=== PATIENT | male | born 1970 | race Caucasian/White ===

== ENCOUNTER 2023-10-27 10:03 | Inpatient (IN) ==
--- NOTE | 2023-10-27 11:08 | Emergency Department Note ---
Impression & Plan Calculus, ureteral, Hydroureteronephrosis ED Provider Note HISTORY OF PRESENT ILLNESS: Patient is a 53-year-old male presenting with lower abdominal pain and inability to urinate. Patient states that 2 days ago was the last time he was able to urinate completely normal. He states that yesterday he felt significant pressure in his suprapubic and lower abdominal region and was voiding "little bits at a time." He states that today he feels like he needs to urinate but when he tries to urinate he is only able to produce a few drops at a time. Denies any chest pain or shortness of breath. Reports nausea on the way here. He states significant pressure in his suprapubic region. ROS: as above PHYSICAL EXAM: Constitutional: Patient appears in no acute distress. HENT: Head: Normocephalic and atraumatic. Eyes: EOMI, PERRL Mouth/Throat: Mucous membranes moist. Neck: Trachea midline. Neck supple. Cardiovascular: RRR, No murmurs, rubs or gallops. Intact distal pulses. Pulmonary/Chest: No respiratory distress. Breath sounds clear and equal bilaterally. No wheezes or rales. Abdominal: Abdomen soft, no rebound or guarding. Patient has suprapubic tenderness to palpation. Dome of bladder is palpated at the umbilicus. Musculoskeletal: No edema, tenderness or deformity noted. Skin: Warm and dry. No rash, erythema, pallor or cyanosis Psychiatric: Appropriate mood and affect for situation. Neurological: Alert and keenly responsive. CN II-XII grossly intact, moving all extremities equally and fully. MDM: - Vitals signs showed hypertension. - History obtained via patient. Patient presents with lower abdominal bloating inability to urinate. Patient reports 2 days ago he was able to urinate completely normal. States that yesterday he had significant pressure in his suprapubic and lower abdominal region and was only voiding a little bit at a time. Reports today he feels like he needs to urinate but is only able to produce a few drops. Denies any chest pain or shortness of breath. Reports nausea. States pressure in his suprapubic region. - Chronic conditions affecting care: prostamegaly - Differential diagnoses include, but are not limited to: urinary retention; UTI; ureteral calculus; diverticulitis - Order placed for continuous cardiac monitoring. At this time, monitor showed rate of 61 bpm with normal sinus rhythm, per my interpretation. - External medical records reviewed. Neurology office visit note dated 05/03/2023 was reviewed. Patient follows in their clinic for concern for prostate cancer. However, he had biopsies performed which showed no cancer. He is actively being treated with Flomax and active surveillance for possible prostatectomy. - Patient was bladder scanned for only 50 cc urine. A wu was placed and about 150 cc of urine was produced. - Laboratory workup interpreted by myself showed leukocytosis (WBC 12.53) with left shift; stable electrolytes; normal creatinine (Cr 1.3); normal lactate - UA negative for infection - CT abdomen/pelvis wo contrast showed 5 mm obstructing stone in distal left ureter with mild left hydroureteronephrosis. - Patient initially given 1L NS, 4 mg IV zofran and 50 mcg IV fentanyl. Still complaining of significant pain on reassessment. Given an additional 50 mcg IV fentanyl. On reassessment, he is laying on the bed crying in pain. Given 0.5 mg IV Dilaudid. - Discussion was had with [facility] home[facility] about patient's case and need for admission - Hospitalist consulted for admission - [facility] ASSESSMENT AND PLAN: Diagnosis: ureteral stone; hydroureteronephrosis Plan: admit Past Med/Surg History Social History Smoking Status: Never smoker Preferred Language: Swedish Feels Safe at Home: Yes Allergies Allergies Allergy/AdvReac Type Severity Reaction Status Date / Time No Known Allergies Allergy Verified 10/27/23 15:19 Home Meds Home Medications Medication Instructions Recorded Confirmed inulin-sorbitol 2 gram chewable 2 tab PO DAILY 10/27/23 10/27/23 tablet krill 1,000 mg-omega-3 170 mg-dha 1 cap PO DAILY 10/27/23 10/27/23 50 mg-epa 80 [id number]-eyhew capsule (krill oil) Previous Rx's Medication Instructions Recorded tamsulosin 0.4 mg capsule 0.4 mg PO DAILY #90 caps 05/03/23 Results & Data (ED) Vital Signs Vital Signs - 24 hr 10/27/23 10:06 10/27/23 11:04 10/27/23 12:04 Temperature 36.5 C Temperature Source Temporal Artery Scan Pulse Rate 61 Pulse Rate [Finger] 69 Pulse Rhythm [Finger] Respiratory Rate 18 18 Respiratory Effort / Characteristics Non-Labored Spontaneous Respiratory Depth Normal Respiratory Pattern Blood Pressure [Left Arm] 164/80 H Blood Pressure Mean [Left Arm] 108 Blood Pressure Position Sitting Blood Pressure Position [Left Arm] Pulse Oximetry 96 97 96 Oxygen Delivery Method Room Air Room Air Room Air Oxygen Flow Rate Sepsis Recent Fever Within 48 Hours No Sepsis New/Unexplained Change in Mental Status No Sepsis Action Taken by Nursing No Action Required 10/27/23 14:00 10/27/23 15:32 10/27/23 16:49 Temperature Temperature Source Pulse Rate Pulse Rate [Finger] 68 61 Pulse Rhythm [Finger] Regular Respiratory Rate 19 22 Respiratory Effort / Characteristics Non-Labored Spontaneous Respiratory Depth Normal Normal Respiratory Pattern Regular Blood Pressure [Left Arm] 159/69 H 147/86 H Blood Pressure Mean [Left Arm] 99 106 Blood Pressure Position Blood Pressure Position [Left Arm] Sitting Pulse Oximetry 98 92 86 L Oxygen Delivery Method Room Air Room Air Room Air Oxygen Flow Rate Sepsis Recent Fever Within 48 Hours Sepsis New/Unexplained Change in Mental Status Sepsis Action Taken by Nursing 10/27/23 16:50 Temperature Temperature Source Pulse Rate Pulse Rate [Finger] Pulse Rhythm [Finger] Respiratory Rate Respiratory Effort / Characteristics Respiratory Depth Respiratory Pattern Blood Pressure [Left Arm] Blood Pressure Mean [Left Arm] Blood Pressure Position Blood Pressure Position [Left Arm] Pulse Oximetry 97 Oxygen Delivery Method Nasal Cannula Oxygen Flow Rate 2 Sepsis Recent Fever Within 48 Hours Sepsis New/Unexplained Change in Mental Status Sepsis Action Taken by Nursing Laboratory Data 10/27/23 11:05 10/27/23 11:05 Lab Results 10/27/23 10/27/23 10/27/23 Range/Units 11:05 11:16 11:29 WBC 12.53 H (4.8-10.8) K/ul RBC 5.11 (4.70-6.10) M/uL Hgb 14.2 (14.0-18.0) g/dl Hct 43.0 (42.0-52.0) % MCV 84.1 (80.0-100.0) fL MCH 27.8 (25.0-34.0) pg MCHC 33.0 (32.0-36.0) g/dL RDW Std Deviation 41.6 (36.4-46.3) fL RDW Coeff of [place] 13.4 (11.5-14.5) % Plt Count 282 (130-400) K/uL MPV 9.9 (9.4-12.4) fL Immature Gran % (Auto) 0.4 % Neut % (Auto) 77.0 % Lymph % (Auto) 14.0 % [place] % (Auto) 7.3 % Eos % (Auto) 0.7 % Baso % (Auto) 0.6 % Neut # (Auto) 9.66 H (1.40-6.50) K/uL Lymph # (Auto) 1.75 (1.20-3.40) K/uL [place] # (Auto) 0.91 H (0.11-0.59) K/uL Eos # (Auto) 0.09 (0.00-0.50) K/uL Baso # (Auto) 0.07 (0.00-0.20) K/uL Immature Gran # (Auto) 0.05 (0.01-0.20) K/uL Sodium 142 (136-145) mmol/L Potassium 4.4 (3.5-5.1) mmol/L Chloride 109 H (98-107) mmol/L Carbon Dioxide 27 (21-32) mmol/L Anion Gap 6 (3-11) BUN 16 (6-23) mg/dl Creatinine 1.30 (0.6-1.4) mg/dl Est Cr Clr Drug Dosing 77.6 ml/min Est GFR ( Amer) 71.7 ml/min Est GFR (Non-Af Amer) 61.9 ml/min BUN/Creatinine Ratio 12.3 (10-20) Glucose 120 H (70-99(Fasting)) mg/dl Lactate 1.0 (0.4-2.0) mmol/L Calcium 9.8 (8.6-10.3) mg/dl Total Bilirubin 0.5 (0.2-1.0) mg/dl AST 22 (13-39) U/L ALT 30 (7-52) U/L Alkaline Phosphatase 80 (34-104) U/L Total Protein 7.8 (6.0-8.3) gm/dl Albumin 4.8 (3.4-5.0) gm/dl Globulin 3.0 (2.5-4.0) gm/dl Albumin/Globulin Ratio 1.6 (0.9-2) Urine Color Yellow Urine Appearance Clear (Clear) Urine pH 6.0 (4.5-7.5) Ur Specific [place] 1.028 (1.000-1.030) Urine Protein Negative (Negative) Urine Glucose (UA) Negative (Negative) Urine Ketones Trace H (Negative) Urine Blood Negative (Negative) Urine Nitrite Negative (Negative) Urine Bilirubin Negative (Negative) Urine Urobilinogen Negative (Negative) Ur Leukocyte Esterase Negative (Negative) Administered Medications Discontinued Medications Fentanyl Citrate (Fentanyl Citrate Pf 100 Mcg/2 Ml Vial) 50 mcg IV NOW STA Stop: 10/27/23 12:43 Last Admin: 10/27/23 13:29 Dose: 50 mcg Documented By: HANS Fentanyl Citrate (Fentanyl Citrate Pf 100 Mcg/2 Ml Vial) 50 mcg IV NOW STA Stop: 10/27/23 15:15 Last Admin: 10/27/23 15:18 Dose: 50 mcg Documented By: ESTHELA Fentanyl Citrate (Fentanyl Citrate Pf 100 Mcg/2 Ml Vial) Confirm Administered Dose 100 mcg .ROUTE .STK-MED ONE Stop: 10/27/23 15:16 Last Admin: 10/27/23 15:18 Dose: Not Given Documented By: ESTHELA Hydromorphone HCl (Hydromorphone Inj 0.5 Mg/0.5 Ml Syr) 0.5 mg IV NOW STA Stop: 10/27/23 16:34 Last Admin: 10/27/23 16:36 Dose: 0.5 mg Documented By: HANS Sodium Chloride (Nss) 1,000 mls @ 999 mls/hr IV .Q1H1M ONE Stop: 10/27/23 13:42 Last Infusion: 10/27/23 15:07 Dose: Infused Documented By: Admin: 10/27/23 13:30 Dose: 999 mls/hr Documented By: HANS Ondansetron HCl (Ondansetron Inj 2 Mg/Ml 2 Ml Vial) 4 mg IV NOW STA Stop: 10/27/23 12:43 Last Admin: 10/27/23 13:30 Dose: 4 mg Documented By: HANS Ondansetron HCl (Ondansetron Inj 2 Mg/Ml 2 Ml Vial) 4 mg IV NOW STA Stop: 10/27/23 15:15 Last Admin: 10/27/23 15:18 Dose: 4 mg Documented By: ESTHELA Imaging Data Radiologist's Impression: Abdomen/Pelvis CT 01/10/24 11:05 CT SCAN OF THE ABDOMEN AND PELVIS WITHOUT IV CONTRAST CLINICAL HISTORY: Lower abdominal pain. Inability to void. COMPARISON STUDY: MRI of the prostate gland dated 02/22/2023. TECHNIQUE: CT scan of the abdomen and pelvis is performed from the lung bases to the proximal femora. Images are reviewed in the axial, sagittal, and coronal planes. IV contrast was not administered for this examination. A dose lowering technique was utilized adhering to the principles of ALARA. CT DOSE: 1448.11 mGy.cm FINDINGS: Lung bases: The heart is normal in size and without pericardial effusion. There is mild bibasilar atelectasis. The lung bases are otherwise clear. Liver: The unenhanced liver is normal in size, contour, and attenuation. There is no intrahepatic biliary ductal dilatation. Scattered subcentimeter hepatic hypodensities likely represent cysts but are too small for definitive characterization. Gallbladder: Unremarkable. Spleen: Normal in size and attenuation. Pancreas: Unremarkable. Adrenal glands: Unremarkable. Kidneys: The unenhanced kidneys are normal in size. There is a 5 mm obstructing calculus in the distal left ureter just above the vesicoureteral junction seen on image #323. This causes mild left hydroureteronephrosis. There is associated left-sided perinephric stranding and fluid. There is an additional punctate nonobstructing left renal calculus. No right renal calculi are identified and there is no right-sided hydronephrosis. There is no evidence of contour deforming renal mass lesion. Abdominal vasculature: The abdominal aorta is normal in course and caliber. Bowel: There is no bowel obstruction. The appendix is well-visualized and normal. Peritoneum: There is no intraperitoneal free air or abdominal ascites. There is a small fat-containing umbilical hernia. Lymphadenopathy: None. Pelvic viscera: The prostate gland is enlarged and heterogeneous. The bladder is decompressed and a Wu catheter and not well evaluated. There are bilateral fat-containing inguinal hernias, left larger than right. Skeletal structures: No lytic or blastic lesions are seen. Sclerotic change is noted in the pubic symphysis. 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 IMPRESSION: 1. There is a 5 mm obstructing calculus in the distal left ureter. This causes mild left hydroureteronephrosis. 2. There is an additional punctate nonobstructing calculus in the left lower pole. 3. The prostate gland is enlarged and heterogeneous. 4. Additional findings as above. ACT 112: Negative or not required by law. Electronically signed by: Mohit May M.D. 10/27/2023 12:23 PM Discharge Plan Visit Data Chief Complaint: Unable to Void Stated Complaint: UNABLE TO URINATE, PROSTATE CANCER ED Provider: Mame Camargo Discharge Problem: Calculus, ureteral, Hydroureteronephrosis Forms Stand Alone Forms: [facility] Prescriptions Prescriptions: No Action tamsulosin 0.4 mg capsule 0.4 mg PO DAILY Qty: 90 3RF inulin-sorbitol 2 gram Tablet,Chewable 2 tab PO DAILY krill oil [id number] mg Capsule 1 cap PO DAILY Referrals Referrals: Aram Valenzuela DO [Primary Care Provider] -
[2023-10-27 11:31] LABS: Basophils # (auto) 0.07 K/uL (0.00-0.20); Basophils % (auto) 0.6 %; Eosinophils # (auto) 0.09 K/uL (0.00-0.50); Eosinophils % (auto) 0.7 %; Hemoglobin 14.2 g/dl (14.0-18.0); Immature Granulocytes # (auto) 0.05 K/uL (0.01-0.20); Immature Granulocytes % (auto) 0.4 %; Lymphocytes # (auto) 1.75 K/uL (1.20-3.40); Mean Corpuscular Hemoglobin 27.8 pg (25.0-34.0); Mean Corpuscular Volume 84.1 fL (80.0-100.0); Mean Platelet Volume 9.9 fL (9.4-12.4); Monocytes # (auto) 0.91 K/uL (0.11-0.59); Monocytes % (auto) 7.3 %; Neutrophils # (auto) 9.66 K/uL (1.40-6.50); Platelet Count 282 K/uL (130-400); RDW Coefficient of Variation 13.4 % (11.5-14.5); RDW Standard Deviation 41.6 fL (36.4-46.3); Red Blood Count 5.11 M/uL (4.70-6.10); White Blood Count 12.53 K/ul (4.8-10.8)
[2023-10-27 11:37] LABS: Appearance Urine Clear (Clear); Bilirubin Urine Negative (Negative); Blood Urine Negative (Negative); Color Urine Yellow; Glucose Urine UA Negative (Negative); Ketones Urine Trace (Negative); Leukocyte Esterase Urine Negative (Negative); Nitrite Urine Negative (Negative); Protein Urine Negative (Negative); Specific Gravity Urine 1.028 (1.000-1.030); Urobilinogen Urine Negative (Negative)
[2023-10-27 11:42] LABS: Albumin Globulin Ratio 1.6 (0.9-2); Albumin Level 4.8 gm/dl (3.4-5.0); BUN Creatinine Ratio 12.3 (10-20); Bilirubin,Total 0.5 mg/dl (0.2-1.0); Calcium 9.8 mg/dl (8.6-10.3); Creatinine Clr Calc Pharmacy 77.6 ml/min; Est GFR (African American) 71.7 ml/min; Est GFR (Non-African American) 61.9 ml/min; Potassium 4.4 mmol/L (3.5-5.1); Total Protein 7.8 gm/dl (6.0-8.3)
--- NOTE | 2023-10-27 12:24 | CT Scan Report ---
CT SCAN OF THE ABDOMEN AND PELVIS WITHOUT IV CONTRAST CLINICAL HISTORY: Lower abdominal pain. Inability to void. COMPARISON STUDY: MRI of the prostate gland dated 02/22/2023. TECHNIQUE: CT scan of the abdomen and pelvis is performed from the lung bases to the proximal femora. Images are reviewed in the axial, sagittal, and coronal planes. IV contrast was not administered for this examination. A dose lowering technique was utilized adhering to the principles of ALARA. CT DOSE: 1448.11 mGy.cm FINDINGS: Lung bases: The heart is normal in size and without pericardial effusion. There is mild bibasilar ate lectasis. The lung bases are otherwise clear. Liver: The unenhanced liver is normal in size, contour, and attenuation. There is no intrahepatic maddie iary ductal dilatation. Scattered subcentimeter hepatic hypodensities likely represent cysts but are too small for definitive characterization. Gallbladder: Unremarkable. Spleen: Normal in size and attenuation. Pancreas: Unremarkable. Adrenal glands: Unremarkable. Kidneys: The unenhanced kidneys are normal in size. There is a 5 mm obstructing calculus in the dista l left ureter just above the vesicoureteral junction seen on image #323. This causes mild left hydrou reteronephrosis. There is associated left-sided perinephric stranding and fluid. There is an addition al punctate nonobstructing left renal calculus. No right renal calculi are identified and there is no right-sided hydronephrosis. There is no evidence of contour deforming renal mass lesion. Abdominal vasculature: The abdominal aorta is normal in course and caliber. Bowel: There is no bowel obstruction. The appendix is well-visualized and normal. Peritoneum: There is no intraperitoneal free air or abdominal ascites. There is a small fat-containin g umbilical hernia. Lymphadenopathy: None. Pelvic viscera: The prostate gland is enlarged and heterogeneous. The bladder is decompressed and a F oley catheter and not well evaluated. There are bilateral fat-containing inguinal hernias, left large r than right. Skeletal structures: No lytic or blastic lesions are seen. Sclerotic change is noted in the pubic sym physis. There are bilateral pars defects at L5 with 11 mm of anterolisthesis, severe disc space narro wing, and endplate sclerosis at L5-S1. IMPRESSION: 1. There is a 5 mm obstructing calculus in the distal left ureter. This causes mild left hydrouretero nephrosis. 2. There is an additional punctate nonobstructing calculus in the left lower pole. 3. The prostate gland is enlarged and heterogeneous. 4. Additional findings as above. ACT 112: Negative or not required by law. Electronically signed by: Mohit May M.D. 10/27/2023 12:23 PM
[2023-10-27] MEDS ORDERED: ONDANSETRON INJ 2 MG/ML 2 ML VIAL IV STA ×2 (12:42→15:14)
[2023-10-27] MEDS ORDERED: fentaNYL citrate PF 100 MCG/2 ML VIAL IV STA ×2 (12:42→15:14)
[2023-10-27] MEDS ORDERED: SODIUM CHLORIDE 0.9% 1,000 ML IV ONE ×2 (12:42→16:41)
[2023-10-27] MEDS ORDERED: fentaNYL citrate PF 100 MCG/2 ML VIAL ONE (15:15)
[2023-10-27] MEDS ORDERED: HYDROmorphone INJ 0.5 MG/0.5 ML SYR IV STA ×3 (16:33→18:24)
--- NOTE | 2023-10-27 17:51 | History & Physical Report ---
Date of Service October 27, 2023 Assessment & Plan (1) Calculus, ureteral: Plan: -Admit to med/surge -Currently hemodynamically stable and stable on RA while awake -Noted to have a 5 mm left distal ureteral stone on CT of the abd/pelvis today -CT noted mild left hydroureteronephrosis -Renal function is stable, no signs of infection -Will have nurse remove wu cath as the diameter of a 16 togolese cath is approximately 5 mm -Will give a dose of flomax now and order urine strainer then continue dialy Flomax tomorrow -Pain control with tylenol and IV dilaudid -Continue IV fluids overnight with poor oral intake and dehydration -PRN narcan for respiratory depression -Urology consulted and following -Regular diet until midnight then NPO in case of OR with urology tomorrow -BL SCD's for DVT PPX -AM CBC and BMP (2) Hypoxia: Plan: -Patient became mildly hypoxic after receiving multiple doses of IV dilaudid and falling asleep per his nurse -Lung sounds are clear, likely due to respiratory depression due to multiple doses of IV narcotics -Will obtain CXR for further evaluation -Incentive spirometry, flutter therapy, prn O2 to Keep SpO2 between -PRn Narcan for repiratory depression (3) Uncontrolled pain: Plan: -Plan as per ureteral stent plan (4) Hydroureteronephrosis: Plan: -See Ureteral calculus (5) Prostate cancer: Plan: -[place] [facility] [place] [facility] [place]Currently on survellience Plan The patient was discussed with Dr. Henriquez at the time of the admission History of Present Illness Chief Complaint: Difficulty voiding Primary Care Provider: Aram Valenzuela DO Gorge is a 53 year old male with a PMH significant for prostate cancer (following [place] [facility] [place] [facility] [place] and BPH with urinary retention who presented to the [facility] ED on 10/27 with complaints of difficulty voiding. He remained stable in the ED. Labs were significant for a leukocytosis of 12, neutrophil predominance of 9, Cr of 1.3 (baseline is approximately 1.0), and UA without signs of infection. CT of the abd/pelvis wo IV con was read as " 1. There is a 5 mm obstructing calculus in the distal left ureter. This causes mild left hydroureteronephrosis. 2. There is an additional punctate nonobstructing calculus in the left lower pole. 3. The prostate gland is enlarged and heterogeneous. 4. Additional findings as above.". The patient had a wu catheter placed and was given 2 doses of 50 mcg IV fentanyl, one dose of 100 mcg IV fentanyl, 2 doses of 0.5 mg IV dilaudid, 2L NSS, and 2 doses of 4 mg IV zofran without relief of his symptoms. At the time of the exam the patient was sleeping in bed, he was stable on 2L NC which was placed after he became hypoxic after receiving IV Dilaudid per his nurse. He states that he started to notice decreased urine output yesterday. This am he started to develop acute onset of 1010, sharp/stabbing back pain with radiation to the left flank/abdomen. He states that the pain comes in waves. He denies a previous history of kidney stones. He confirms his hx of prostate cancer and states that he is in surveillance and follows [place] [facility] [place] [place] [facility]. Denies fever, chills, chest pain, SOB, cough, abd pain, nausea, vomiting, diarrhea, dysuria, hematuria, melena, and recent trauma. His pain is currently under control after receiving IV dilaudid in the ED. Please refer to Dr. Henriquez's attestation for any changes to the treatment plan Allergies Allergy/AdvReac Type Severity Reaction Status Date / Time No Known Allergies Allergy Verified 10/27/23 15:19 Home Medications Medication Instructions Recorded Confirmed Type tamsulosin 0.4 mg capsule 0.4 mg PO DAILY #90 caps 05/03/23 10/27/23 Rx inulin-sorbitol 2 gram chewable 2 tab PO DAILY 10/27/23 10/27/23 History tablet krill 1,000 mg-omega-3 170 mg-dha 1 cap PO DAILY 10/27/23 10/27/23 History 50 mg-epa 80 [id number] capsule (krill oil) Past Med/Surg History Social History Smoking Status: Never smoker Do You Dip or Chew Tobacco: No; Hx Alcohol Use: Yes Alcohol type: beer Hx Substance Use: No Preferred Language: Lao Communication Ability: Effective 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 Beliefs That Will Affect Care: None Current Living Situation: Alone Feels Safe at Home: Yes Assistive Devices: None Physical Exam Physical Exam: Physical Exam: General: In no acute distress, stated age, well-nourished, non-toxic appearing HEENT: Normocephalic, atraumatic, no scleral icterus, pupils around round, symmetrical, and reactive to light, moist mucus membranes, trachea midline, no thyromegaly Chest/Pulm: No respiratory distress, symmetrical chest expansion, clear breat h sounds throughout Cardiac: RRR, no murmurs noted Abdomen: Negative for ascites and bruising, normoactive bowel sounds, soft, non-tender to palpation throughout : Currently with wu cath in place and draining clear, yellow urine; no stone observed on evaluation of wu tubing or bag. Negative CVA tenderness BL Musculoskeletal: Symmetrical and without signs of acute trauma, upper and lower extremities with full ROM, no atrophy, spasticity, or flaccidity Extremities: Radial, dorsalis pedis, and posterior tibial pulses are intact and symmetrical, no edema noted in the BL LE's Skin: Warm, dry, no rashes , lesions, or scars noted Neuro: Alert and oriented to person, place, month, year, and president, no focal defects, no tremors noted Psych: No acute distress, calm and cooperative during the exam Results & Data Results & Data Vital Signs (Past 12 Hours) Vital Signs Temp Pulse Pulse Resp BP Pulse Ox O2 Del Method 10/27/23 17:08 58 L 19 153/67 H 100 Room Air 10/27/23 16:50 97 Nasal Cannula 10/27/23 16:49 86 L Room Air 10/27/23 15:32 61 22 147/86 H 92 Room Air 10/27/23 14:00 68 19 159/69 H 98 Room Air 10/27/23 12:04 69 18 164/80 H 96 Room Air 10/27/23 11:04 97 Room Air 10/27/23 10:06 36.5 C 61 18 96 Room Air O2 Flow Rate 10/27/23 17:08 10/27/23 16:50 2 10/27/23 16:49 10/27/23 15:32 10/27/23 14:00 10/27/23 12:04 10/27/23 11:04 10/27/23 10:06 Laboratory Results Abnormal lab results 10/27/23 10/27/23 Range/Units 11:05 11:16 WBC 12.53 H (4.8-10.8) K/ul Neut # (Auto) 9.66 H (1.40-6.50) K/uL [place] # (Auto) 0.91 H (0.11-0.59) K/uL Chloride 109 H (98-107) mmol/L Glucose 120 H (70-99(Fasting)) mg/dl Urine Ketones Trace H (Negative) Diagnostic Findings Abdomen/Pelvis CT 10/27/23 11:05 CT SCAN OF THE ABDOMEN AND PELVIS WITHOUT IV CONTRAST CLINICAL HISTORY: Lower abdominal pain. Inability to void. COMPARISON STUDY: MRI of the prostate gland dated 02/22/2023. TECHNIQUE: CT scan of the abdomen and pelvis is performed from the lung bases to the proximal femora. Images are reviewed in the axial, sagittal, and coronal planes. IV contrast was not administered for this examination. A dose lowering technique was utilized adhering to the principles of ALARA. CT DOSE: 1448.11 mGy.cm FINDINGS: Lung bases: The heart is normal in size and without pericardial effusion. There is mild bibasilar atelectasis. The lung bases are otherwise clear. Liver: The unenhanced liver is normal in size, contour, and attenuation. There is no intrahepatic biliary ductal dilatation. Scattered subcentimeter hepatic hypodensities likely represent cysts but are too small for definitive characterization. Gallbladder: Unremarkable. Spleen: Normal in size and attenuation. Pancreas: Unremarkable. Adrenal glands: Unremarkable. Kidneys: The unenhanced kidneys are normal in size. There is a 5 mm obstructing calculus in the distal left ureter just above the vesicoureteral junction seen on image #323. This causes mild left hydroureteronephrosis. There is associated left-sided perinephric stranding and fluid. There is an additional punctate nonobstructing left renal calculus. No right renal calculi are identified and there is no right-sided hydronephrosis. There is no evidence of contour deforming renal mass lesion. Abdominal vasculature: The abdominal aorta is normal in course and caliber. Bowel: There is no bowel obstruction. The appendix is well-visualized and normal. Peritoneum: There is no intraperitoneal free air or abdominal ascites. There is a small fat-containing umbilical hernia. Lymphadenopathy: None. Pelvic viscera: The prostate gland is enlarged and heterogeneous. The bladder is decompressed and a Wu catheter and not well evaluated. There are bilateral fat-containing inguinal hernias, left larger than right. Skeletal structures: No lytic or blastic lesions are seen. Sclerotic change is noted in the pubic symphysis. 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 IMPRESSION: 1. There is a 5 mm obstructing calculus in the distal left ureter. This causes mild left hydroureteronephrosis. 2. There is an additional punctate nonobstructing calculus in the left lower pole. 3. The prostate gland is enlarged and heterogeneous. 4. Additional findings as above. ACT 112: Negative or not required by law. Electronically signed by: Mohit May M.D. 10/27/2023 12:23 PM Code Status & VTE Plan Code Status Full code VTE Prophylaxis Plan VTE Prophylaxis will be ordered: Yes Supervising Physician Co-Signing Physician Notes I personally saw and examined the patient. I verified all whelan points and agree with Alexey Mariscal PA-C with the following exceptions and/or additions: 53 year old presents to the ER with left abdominal, flank pain on palpation severity 10/10 and increased difficulty urinating. O/E A&Ox3, HS RRR, no murmurs, Chest CTAB, Abdo SNT, left CVA tenderness A/P Ureterolithiasis - strain all urine, start tamsulosin as stone >= 5mm. IV fluids. Consult urology. NPO after midnight. UA not suggestive of infection and acute onset of symptoms therefore antibiotics deferred on admission. Patient was not in urine retention (minimal urine output after wu catheter placed) and wu catheter has since been appropriately removed PG Care Time/CCT Total # of Minutes Spent Total Time Spent with Patient: Total time spent is greater than 50% in coordination of care (as documented) at patient's floor/unit and/or counseling patient: C[place] [address] INT INP/OBS CARE 2/55MIN Patient Type Established Medical Decision Making Moderate Complexity Diagnoses Calculus, ureteral N20.1 Hypoxia R09.02 Uncontrolled pain R52 Hydroureteronephrosis N13.30 Prostate cancer C61
[2023-10-27] MEDS ORDERED: NALOXONE HCL 0.4 MG/1 ML VIAL/CARP IV PRN (18:07)
[2023-10-27] MEDS ORDERED: ACETAMINOPHEN 500 MG TAB PO STA (18:09)
[2023-10-27] MEDS ORDERED: ACETAMINOPHEN 325 MG TAB PO PRN (18:10)
[2023-10-27] MEDS ORDERED: HYDROmorphone INJ 0.5 MG/0.5 ML SYR IV PRN (18:10)
[2023-10-27] MEDS ORDERED: TAMSULOSIN HCL 0.4 MG CAP PO ONE (18:13)
--- NOTE | 2023-10-27 18:13 | Urology Consultation ---
Date of Consultation October 27, 2023 Assessment & Plan (1) Calculus, ureteral: (2) Prostate cancer: (3) Hydroureteronephrosis: Plan 53-year-old male with a 5 mm distal left ureteral calculus I had a discussion with him and his regarding his 5 mm calculus. Discussed medical expulsive therapy versus left ureteral stent placement. Explained that typically in the acute setting we do not opt for stone treatment and rather just placed a stent to control symptoms and that he would require a second outpatient procedure for stone treatment. We will plan for observation and pain control overnight. No acute indication for surgical intervention Patient can have a diet currently but please make n.p.o. after midnight Can reevaluate in the morning to determine if he can be discharged home or would need a left ureteral stent placement Recommend straining urine from catheter Suspect he was not in retention but rather had dysuria for the location of the stone. Bowman catheter can stay in overnight and be reassessed in the morning Urology to follow History of Present Illness History of Present Illness 53-year-old male with left flank pain who present emergency department earlier today. Afebrile with stable vitals. Labs showed a leukocytosis of 12 0.5, creatinine of 1.3 and a negative urinalysis. A CT scan showed a 5 mm distal left ureteral calculus with mild hydronephrosis. He was admitted due to pain control. He was having some dysuria symptoms likely from the stone but the emergency department placed the catheter due to concern for retention. Patient is known to the urologic service as he follows with Dr. Tello for history of prostate cancer currently on active surveillance Allergies Allergy/AdvReac Type Severity Reaction Status Date / Time No Known Allergies Allergy Verified 10/27/23 15:19 Home Medications Medication Instructions Recorded Confirmed Type tamsulosin 0.4 mg capsule 0.4 mg PO DAILY #90 caps 05/03/23 10/27/23 Rx inulin-sorbitol 2 gram chewable 2 tab PO DAILY 10/27/23 10/27/23 History tablet krill 1,000 mg-omega-3 170 mg-dha 1 cap PO DAILY 10/27/23 10/27/23 History 50 mg-epa 80 [id number] capsule (krill oil) Patient History Social History Smoking Status: Never smoker Preferred Language: Finnish Feels Safe at Home: Yes Review of Systems Review of Systems: 14 point review of systems negative outs saba of what is listed above in HPI Physical Exam Physical Exam: General: Alert and oriented, no acute distress HEENT: Normocephalic, mucous membranes moist Pulmonary: Nonlabored respirations Abdomen: Nondistended Extremities: Moves all 4 spontaneously Neuro: No gross deficits Skin: Warm, dry, no rashes noted Results & Data Vital Signs (Past 12 Hours) Vital Signs Temp Pulse Pulse Resp BP Pulse Ox O2 Del Method 10/27/23 17:08 58 L 19 153/67 H 100 Room Air 10/27/23 16:50 97 Nasal Cannula 10/27/23 16:49 86 L Room Air 10/27/23 15:32 61 22 147/86 H 92 Room Air 10/27/23 14:00 68 19 159/69 H 98 Room Air 10/27/23 12:04 69 18 164/80 H 96 Room Air 10/27/23 11:04 97 Room Air 10/27/23 10:06 36.5 C 61 18 96 Room Air O2 Flow Rate 10/27/23 17:08 10/27/23 16:50 2 10/27/23 16:49 10/27/23 15:32 10/27/23 14:00 10/27/23 12:04 10/27/23 11:04 10/27/23 10:06 PG Care Time/CCT Total # of Minutes Spent Total Time Spent with Patient: Total time spent is greater than 50% in coordination of care (as documented) at patient's floor/unit and/or counseling patient: Coding Level of Care Code 94962 IN/OBS CONSULT LVL 4,60M Diagnoses Calculus, ureteral N20.1 Prostate cancer C61 Hydroureteronephrosis N13.30
[2023-10-27] MEDS: LACTATED RINGER'S 1,000 ML IV SCH (20:11)
[2023-10-27] MEDS ORDERED: HYDROmorphone INJ 1 MG/ML SYRINGE IV PRN (21:05)
[2023-10-27] MEDS ORDERED: ONDANSETRON INJ 2 MG/ML 2 ML VIAL IV PRN (23:28)
[2023-10-28] MEDS ORDERED: HYDROmorphone INJ 1 MG/ML SYRINGE ONE (00:24)
[2023-10-28] MEDS: HYDROmorphone INJ 1 MG/ML SYRINGE IV PRN ×2 (03:07→06:13)
[2023-10-28] MEDS: LACTATED RINGER'S 1,000 ML IV SCH ×2 (06:13→16:47)
--- NOTE | 2023-10-28 06:44 | XRay Report ---
XR chest 1V portable HISTORY: hypoxia COMPARISON: None. FINDINGS: No pneumothorax. No pleural effusions. There are low lung volumes. A few bibasilar linear d ensities favor subsegmental atelectasis or scarring. Otherwise, lungs are clear. No evidence for pulm onary edema. The heart is mildly enlarged. This may be accentuated by the low lung volumes. No acute fractures identified. IMPRESSION: No acute process. ACT 112: Negative or not required by law. Electronically signed by: Tomas Faulkner M.D. 10/28/2023 6:42 AM
[2023-10-28] MEDS: ACETAMINOPHEN 500 MG TAB PO PRN ×2 (07:41→20:32)
--- NOTE | 2023-10-28 07:50 | Urology Progress Note ---
<Statement entered by Aram Lewis MD - 10/28/23 13:33> I have discussed Mr. Mccormack case with GÓMEZ Swanson and agree with the above documentation. With fevers and chills, we will plan on cystoscopy, left retrograde pyelogram and left ureteral stent placement to ensure he has drainage of the upper urinary tract. We reviewed risks and benefits of the surgery. He expressed understanding and agreed to proceed. -Aram Lewis MD. Date of Service October 28, 2023 Assessment & Plan (1) Calculus, ureteral: (2) Hydroureteronephrosis: Plan 53-year-old male with a 5 mm distal left ureteral calculus Temp 38.0C this morning. Mildy tachycardic and hypertensive. Labs reviewed -WBC 10.53, creatinine 1.83. Urinalysis without signs of infection. Pain currently well controlled but reports chills this morning. We discussed acute stone management with cystoscopy and stent placement. Ureteral stents were discussed as well as postoperative issues and pain management. He is aware that a second procedure will needed for stone treatment. Risks and benefits were discussed. All questions were answered. Given his fever, chills, and ANUP today will plan to proceed to OR today for cystoscopy and left ureteral stent placement. Risks and benefits discussed as per consent. Keep NPO. Will cover with Ancef preoperatively. Urology will follow. Admission and Anticipated Discharge Date Admission Date: October 27, 2023 Subjective Pt examined at bedside this AM. Awake, resting in bed on arrival. No acute distress. Pain well controlled at present. Reports some chills and n/v this morning. Temp 38.0C Voiding spontaneously, no hematuria or dysuria. Has been NPO. Review of Systems Constitutional: as per Subjective / HPI Genitourinary: + as per Subjective / HPI Physical Exam Constitutional: no acute distress Respiratory: no respiratory distress and no labored breathing Neurologic: moves all extremities and awake Psychiatric: A+Ox3, euthymic affect Results & Data Vital Signs (Past 12 Hours) Vital Signs Temp Pulse Pulse Resp BP BP Pulse Ox 10/28/23 00:58 10/27/23 22:45 10/27/23 22:45 36.8 C 58 L 18 148/82 H 96 10/27/23 22:45 36.8 C 58 L 18 148/82 H 96 10/27/23 22:00 65 21 148/69 H 97 10/27/23 21:30 57 L 17 97 10/27/23 21:00 61 16 97 10/27/23 20:33 85 21 97 10/27/23 20:32 66 O2 Del Method O2 Flow Rate 10/28/23 00:58 Room Air, Nasal Cannula 2 10/27/23 22:45 Room Air, Nasal Cannula 10/27/23 22:45 Room Air 10/27/23 22:45 Room Air 10/27/23 22:00 Nasal Cannula 2 10/27/23 21:30 Nasal Cannula 2 10/27/23 21:00 10/27/23 20:33 10/27/23 20:32 PG Care Time/CCT Total # of Minutes Spent Total Time Spent with Patient: Total time spent is greater than 50% in coordination of care (as documented) at patient's floor/unit and/or counseling patient: Coding Level of Care Code 10193 SUB INP/OBS CARE 2/35MIN Diagnoses Calculus, ureteral N20.1 Hydroureteronephrosis N13.30
--- NOTE | 2023-10-28 07:50 | Anesthesiology Consultation ---
Date of Service October 28, 2023 Assessment & Plan Chart Review Chart Review: order entry initiated History Surgery Operation Date: 10/28/23 10:40 Proposed Procedures p Cystoscopy Left Retrograde Pyelogram with Stent Placement - Mark Herrera DO Height/Weight Height: 5 ft 10 in Weight: 103 kg Allergies Allergy/AdvReac Type Severity Reaction Status Date / Time No Known Allergies Allergy Verified 10/27/23 15:19 Medications Home Medications Medication Instructions Recorded Confirmed Last Taken tamsulosin 0.4 mg capsule 0.4 mg PO DAILY #90 caps 05/03/23 10/27/23 10/27/23 inulin-sorbitol 2 gram chewable 2 tab PO DAILY 10/27/23 10/27/23 10/27/23 tablet krill 1,000 mg-omega-3 170 mg-dha 1 cap PO DAILY 10/27/23 10/27/23 10/27/23 50 mg-epa 80 [id number] capsule (krill oil) Active Medications Generic Name Dose Route Start Last Admin Trade Name Freq PRN Reason Stop Dose Admin Acetaminophen 1,000 mg 10/27/23 23:57 10/28/23 07:41 Acetaminophen 500 Mg Tab PO 11/26/23 23:56 1,000 mg Q8H PRN Administration Pain or Fever Hydromorphone HCl 1 mg 10/27/23 23:57 10/28/23 06:13 Hydromorphone Inj 1 Mg/Ml Syringe IV 11/10/23 21:04 1 mg Q3H PRN Administration Pain (5+) Lactated Ringer's 1,000 mls @ 100 mls/hr 10/27/23 18:15 10/28/23 06:13 Lr IV 10/28/23 14:14 100 mls/hr .Q10H SHY Administration Ondansetron HCl 4 mg 10/27/23 23:28 10/27/23 23:36 Ondansetron Inj 2 Mg/Ml 2 Ml Vial IV 11/26/23 23:27 4 mg Q6H PRN Administration Nausea And Vomiting Social History Smoking Status: Never smoker Do You Dip or Chew Tobacco: No Hx Alcohol Use: Yes Alcohol type: beer alcohol intake frequency: holidays/special occasions only Hx Substance Use: No substance use type: does not use Physical Exam Vital Signs Last Vital Signs Temp 98.2 F 10/27/23 22:45 Pulse 58 L 10/27/23 22:45 Resp 18 10/27/23 22:45 BP 148/82 H 10/27/23 22:45 Pulse Ox 96 10/27/23 22:45 O2 Del Method Room Air, Nasal Cannula 10/28/23 00:58 O2 Flow Rate 2 10/28/23 00:58 Testing Laboratory Results 10/27/23 11:05 10/27/23 11:05 Urine Color Yellow 10/27/23 11:16 Urine Appearance Clear (Clear) 10/27/23 11:16 Urine pH 6.0 (4.5-7.5) 10/27/23 11:16 Ur Specific [place] 1.028 (1.000-1.030) 10/27/23 11:16 Urine Protein Negative (Negative) 10/27/23 11:16 Urine Glucose (UA) Negative (Negative) 10/27/23 11:16 Urine Ketones Trace (Negative) H 10/27/23 11:16 Urine Nitrite Negative (Negative) 10/27/23 11:16 Ur Leukocyte Esterase Negative (Negative) 10/27/23 11:16 Chest X-Ray Date: 10/27/23 Findings: + NAD
[2023-10-28] MEDS: TAMSULOSIN HCL 0.4 MG CAP PO SCH (08:03)
--- NOTE | 2023-10-28 08:27 | Hospitalist Progress Note ---
Date of Service October 28, 2023 Assessment & Plan (1) Calculus, ureteral: Plan: -Noted to have a 5 mm left distal ureteral stone on CT of the abd/pelvis with mild left hydrounephrosis -continue flomax -Pain control with tylenol and IV dilaudid -Continue IV fluids overnight -Urology consulted and following, reviewed recs in note today - planned for cystoscopy and L ureteral stent today. late in day addendum - procedure went uneventfully as planned -BL SCD's for DVT PPX -AM CBC and BMP reviewed leukocytosis resolved, Cr increased see below Fever - temp to 38 this am. UA was negative but could be related to ureteral obstruction and hydronephrosis. Did have hypoxia following sedating medications (opioids) given for pain in ED. CXR with low lung volumes and atelectasis. Could be from mild aspiration or atelectasis. UA was negative but could be related to ureteral obstruction and hydronephrosis -incentive spirometer -monitor (2) ANUP (acute kidney injury): Plan: Obstructive ANUP, I don't see that any NSAIDS were given Cr baseline around 1 Increased to 1.8 this am labs -ureteral stent placed -reordered IV LR continuous -AM BMP (3) Hypoxia: Plan: -Patient became mildly hypoxic after receiving multiple doses of IV dilaudid in ED and falling asleep per his nurse -reviewed CXR film and report - low lung volumes and atelectasis -Incentive spirometry, flutter therapy, prn O2. Improved/resolving (4) Uncontrolled pain: Plan: -Plan as per ureteral stent plan (5) Hydroureteronephrosis: Plan: -See Ureteral calculus (6) Prostate cancer: Plan: -Follows with [facility] Tello -Currently on surveillance Plan Admission and Anticipated Discharge Date Admission Date: October 27, 2023 Subjective Had severe L flank/abdomen pain overnight, last pain med at 6am per RN, since 7 am no pain. Seen early AM. Urinating well, straining urine had not passed stone. Had fever/chills Tm 38.0 Physical Exam 2 Physical Exam: PHYSICAL EXAMINATION Last 24h vital signs reviewed, see documentation in flowsheet General: comfortable appearing, no distress HEENT: Normocephalic, atraumatic, pupils round and equal, sclerae anicteric, no conjunctival injection, moist mucus membranes Lungs: Normal respiratory effort. Clear to auscultation bilaterally. No RRW Heart: Regular rate and rhythm, no murmurs. No JVD Abdomen: Soft, nontender, nondistended. Bowel sounds present. Extremities: Warm, dry, well-perfused. No extremity edema. Neuro: Alert and oriented x 4, face symmetric, moves 4 extremities well Psych: Normal affect and behavior Results & Data Results & Data Vital Signs (Past 12 Hours) Vital Signs Temp Pulse Pulse Resp BP BP BP 10/28/23 08:15 38.0 C H 96 H 16 168/65 H 10/28/23 00:58 10/27/23 22:45 10/27/23 22:45 36.8 C 58 L 18 148/82 H 10/27/23 22:45 36.8 C 58 L 18 148/82 H 10/27/23 22:00 65 21 148/69 H 10/27/23 21:30 57 L 17 10/27/23 21:00 61 16 10/27/23 20:33 85 21 10/27/23 20:32 66 Pulse Ox O2 Del Method O2 Flow Rate 10/28/23 08:15 96 Nasal Cannula 2 10/28/23 00:58 Room Air, Nasal Cannula 2 10/27/23 22:45 Room Air, Nasal Cannula 10/27/23 22:45 96 Room Air 10/27/23 22:45 96 Room Air 10/27/23 22:00 97 Nasal Cannula 2 10/27/23 21:30 97 Nasal Cannula 2 10/27/23 21:00 97 10/27/23 20:33 97 10/27/23 20:32 Laboratory Results 10/28/23 07:51 10/28/23 07:51 Diagnostic Findings Abdomen/Pelvis CT 10/27/23 11:05 CT SCAN OF THE ABDOMEN AND PELVIS WITHOUT IV CONTRAST CLINICAL HISTORY: Lower abdominal pain. Inability to void. COMPARISON STUDY: MRI of the prostate gland dated 02/22/2023. TECHNIQUE: CT scan of the abdomen and pelvis is performed from the lung bases to the proximal femora. Images are reviewed in the axial, sagittal, and coronal planes. IV contrast was not administered for this examination. A dose lowering technique was utilized adhering to the principles of ALARA. CT DOSE: 1448.11 mGy.cm FINDINGS: Lung bases: The heart is normal in size and without pericardial effusion. There is mild bibasilar atelectasis. The lung bases are otherwise clear. Liver: The unenhanced liver is normal in size, contour, and attenuation. There is no intrahepatic biliary ductal dilatation. Scattered subcentimeter hepatic hypodensities likely represent cysts but are too small for definitive characterization. Gallbladder: Unremarkable. Spleen: Normal in size and attenuation. Pancreas: Unremarkable. Adrenal glands: Unremarkable. Kidneys: The unenhanced kidneys are normal in size. There is a 5 mm obstructing calculus in the distal left ureter just above the vesicoureteral junction seen on image #323. This causes mild left hydroureteronephrosis. There is associated left-sided perinephric stranding and fluid. There is an additional punctate nonobstructing left renal calculus. No right renal calculi are identified and there is no right-sided hydronephrosis. There is no evidence of contour deforming renal mass lesion. Abdominal vasculature: The abdominal aorta is normal in course and caliber. Bowel: There is no bowel obstruction. The appendix is well-visualized and normal. Peritoneum: There is no intraperitoneal free air or abdominal ascites. There is a small fat-containing umbilical hernia. Lymphadenopathy: None. Pelvic viscera: The prostate gland is enlarged and heterogeneous. The bladder is decompressed and a Bowman catheter and not well evaluated. There are bilateral fat-containing inguinal hernias, left larger than right. Skeletal structures: No lytic or blastic lesions are seen. Sclerotic change is noted in the pubic symphysis. 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 IMPRESSION: 1. There is a 5 mm obstructing calculus in the distal left ureter. This causes mild left hydroureteronephrosis. 2. There is an additional punctate nonobstructing calculus in the left lower pole. 3. The prostate gland is enlarged and heterogeneous. 4. Additional findings as above. ACT 112: Negative or not required by law. Electronically signed by: Mohit May M.D. 10/27/2023 12:23 PM Chest X-Ray 10/27/23 18:12 XR chest 1V portable HISTORY: hypoxia COMPARISON: None. FINDINGS: No pneumothorax. No pleural effusions. There are low lung volumes. A few bibasilar linear densities favor subsegmental atelectasis or scarring. Otherwise, lungs are clear. No evidence for pulmonary edema. The heart is mildly enlarged. This may be accentuated by the low lung volumes. No acute fractures identified. IMPRESSION: No acute process. ACT 112: Negative or not required by law. Electronically signed by: Tomas Faulkner M.D. 10/28/2023 6:42 AM 10/27/23 11:05 10/27/23 11:05 PG Care Time/CCT Total # of Minutes Spent Total Time Spent with Patient: Total time spent is greater than 50% in coordination of care (as documented) at patient's floor/unit and/or counseling patient: Coding Level of Care Code 52167 SUB INP/OBS CARE 2/35MIN Diagnoses Calculus, ureteral N20.1 ANUP (acute kidney injury) N17.9 Hypoxia R09.02 Uncontrolled pain R52 Hydroureteronephrosis N13.30 Prostate cancer C61
[2023-10-28 08:57] LABS: BUN Creatinine Ratio 7.1 (10-20); Calcium 8.5 mg/dl (8.6-10.3); Creatinine Clr Calc Pharmacy 55.5 ml/min; Est GFR (African American) 47.4 ml/min; Est GFR (Non-African American) 40.9 ml/min; Magnesium 1.7 mg/dl (1.7-2.4); Potassium 4.1 mmol/L (3.5-5.1)
[2023-10-28 09:33] LABS: Hematocrit (blood only) 37.7 % (42.0-52.0); Hemoglobin 12.3 g/dl (14.0-18.0); Mean Corpuscular Hgb Conc 32.6 g/dL (32.0-36.0); Mean Corpuscular Volume 85.7 fL (80.0-100.0); Mean Platelet Volume 10.1 fL (9.4-12.4); Platelet Count 190 K/uL (130-400); RDW Coefficient of Variation 13.5 % (11.5-14.5); RDW Standard Deviation 42.6 fL (36.4-46.3); White Blood Count 10.53 K/ul (4.8-10.8)
--- NOTE | 2023-10-28 12:35 | Electrocardiogram Report ---
Test Reason : Blood Pressure : / mmHG Vent. Rate : 074 BPM Atrial Rate : 074 BPM P-R Int : 164 ms QRS Dur : 108 ms QT Int : 376 ms P-R-T Axes : 042 054 031 degrees QTc Int : 417 ms Normal sinus rhythm Normal ECG No previous ECGs available Confirmed by Reji Srivastava ([id number]) on 10/28/2023 12:34:58 PM Referred By: REFERRED SELF Confirmed By:Reji Srivastava
[2023-10-28] MEDS ORDERED: ceFAZolin 2000MG 2,000 MG/15 ML SYR IV ONE (13:15)
[2023-10-28] MEDS ORDERED: MIDAZOLAM HCL 1 MG/ML 2ML VIAL ONE (13:31)
[2023-10-28] MEDS ORDERED: fentaNYL citrate PF 100 MCG/2 ML VIAL ONE (13:31)
[2023-10-28] MEDS ORDERED: PROPOFOL IV EMULSION 10 MG/ML 20 ML VIAL IV ONE (13:31)
[2023-10-28] MEDS ORDERED: ePHEDrine sulfate 50 MG/ML AMP IV PRN (13:43)
[2023-10-28] MEDS ORDERED: fentaNYL citrate PF 100 MCG/2 ML VIAL IV PRN (13:43)
[2023-10-28] MEDS ORDERED: ONDANSETRON INJ 2 MG/ML 2 ML VIAL IV PRN (13:43)
[2023-10-28] MEDS ORDERED: ATROPINE SULFATE 0.1 MG/ML 10ML SYR IV PRN (13:43)
[2023-10-28] MEDS ORDERED: LACTATED RINGER'S 1,000 ML IV SCH (13:45)
--- NOTE | 2023-10-28 14:18 | Operative Report ---
PG Post Operative Report Pre & Post Diagnosis Operation Date: 10/28/23 10:40 Pre-Op Diagnosis: Calculus, ureteral, Hydroureteronephrosis Post-Op Diagnosis: Calculus, ureteral, Hydroureteronephrosis I identified the patient and participated in the time-out.: Yes Procedure Operation Date: 10/28/23 10:40 Actual Procedures p Cystoscopy Left Retrograde Pyelogram with Stent Placement(Left) - Aram Lewis MD Surgeon Aram Lewis MD Payroll Benefits Administrator None Estimated Blood Loss 0 Findings Consistent with Post-Op Diagnosis Specimens None Drains 6 [place] by 26 cm double-J ureteral stent in the left ureter Anesthesia Type General Complications none Disposition Accompanied Patient To Recovery: Yes Disposition: Recovery Room Indications This is a 53-year-old male currently in the hospital with a left ureteral stone. Due to new fevers and chills, he is being brought to the OR for left ureteral stent placement to ensure maximal drainage of the urinary tract. Description of Procedure The patient was identified in the holding area and informed consent was confirmed. He was marked on the left side, then was taken to the operating room where anesthesia was initiated. He was placed in the dorsal lithotomy position with all pressure points appropriately padded. He was prepped and draped in the usual sterile fashion and a preoperative timeout was performed. A well-lubricated cystoscope was inserted per urethra and panendoscopy was performed. The pendulous urethra was normal with no strictures or mucosal abno rmalities. The prostate was of normal size. His bladder appeared grossly normal with no tumors or stones appreciated. Ureteral orifices were in orthotopic position bilaterally. A 5 [place] open-ended catheter was inserted and used to intubate the left ureteral orifice. I had to use a wire to direct the open-ended catheter into the ureter. The ureter was advanced part way up, then the wire was removed and a retrograde pyelogram was performed. There was mild hydronephrosis of the kidney. A 0.038 inch zip wire was advanced up to the kidney under fluoroscopic guidance. Over the wire, a 6 [place] x 26 cm double-J ureteral stent was advanced. When the wire was removed, there was a good curl in the kidney under fluoroscopic guidance. A curl was visualized in the bladder with the cystoscope. At this point the bladder was drained and all instrumentation was removed. The patient was then awakened from anesthesia and was brought to the PACU in stable condition. I attest to the content of the Intraoperative Record and any orders documented therein. Any exceptions are noted below.
[2023-10-28] MEDS ORDERED: DIATRIZOATE MEGLUMINE 30% 100ML VIAL INSTIL ONE (14:24)
--- NOTE | 2023-10-28 14:36 | Anesthesiology Progress Note ---
Date of Service October 28, 2023 Anesthesia Post Procedure Vital Signs Vital Signs: Temp Pulse Pulse Pulse Resp BP BP 10/28/23 14:30 64 17 10/28/23 14:20 36.2 C L 73 17 10/28/23 13:10 37.2 C 75 16 99/64 L 10/28/23 09:00 37.1 C 10/28/23 08:15 38.0 C H 96 H 16 10/28/23 00:58 10/27/23 22:45 10/27/23 22:45 36.8 C 58 L 18 148/82 H 10/27/23 22:45 36.8 C 58 L 18 148/82 H 10/27/23 22:00 65 21 148/69 H 10/27/23 21:30 57 L 17 10/27/23 21:00 61 16 10/27/23 20:33 85 21 10/27/23 20:32 66 10/27/23 17:08 58 L 19 153/67 H 10/27/23 16:50 10/27/23 16:49 10/27/23 15:32 61 22 147/86 H BP Pulse Ox O2 Del Method O2 Flow Rate 10/28/23 14:30 111/62 97 Nasal Cannula 2 10/28/23 14:20 131/80 92 Nasal Cannula 2 10/28/23 13:10 95 Room Air 10/28/23 09:00 10/28/23 08:15 168/65 H 96 Nasal Cannula 2 10/28/23 00:58 Room Air, Nasal Cannula 2 10/27/23 22:45 Room Air, Nasal Cannula 10/27/23 22:45 96 Room Air 10/27/23 22:45 96 Room Air 10/27/23 22:00 97 Nasal Cannula 2 10/27/23 21:30 97 Nasal Cannula 2 10/27/23 21:00 97 10/27/23 20:33 97 10/27/23 20:32 10/27/23 17:08 100 Room Air 10/27/23 16:50 97 Nasal Cannula 2 10/27/23 16:49 86 L Room Air 10/27/23 15:32 92 Room Air Pain Intensity Back: Pain Intensity: 9 Transfer of Care Handoff Completed per policy Notes Mental Status: alert / awake / arousable and participated in evaluation Patient Amnestic to Procedure: Yes Nausea / Vomiting: adequately controlled Pain: adequately controlled Airway Patency, RR, SpO2: stable & adequate BP & HR: stable & adequate Hydration State: stable & adequate Anesthetic Complications: no major complications apparent and Pt Satisfied with anesthetic care
[2023-10-28] MEDS ORDERED: oxyCODONE HCL IR 5 MG TAB (IMMEDIATE RELEASE) PO PRN ×2 (15:32)
--- NOTE | 2023-10-28 15:50 | Fluoroscopy Report ---
INTRAOPERATIVE RADIOGRAPHS CLINICAL HISTORY: Left ureteral stent placement. Fluoro time: 9 seconds Ka,r: 2.69 mGy FINDINGS: 2 spot fluoroscopic views of the left abdomen are correlated with abdominal CT dated . The initial image shows a wire projecting over the left renal pelvis. The second image shows the proximal end of a left ureteral stent in appropriate position. IMPRESSION: Intraoperative images from a left ureteral stent placement procedure as above. Electronically signed by: Mohit May M.D. 10/28/2023 3:48 PM
[2023-10-29] MEDS: LACTATED RINGER'S 1,000 ML IV SCH (01:26)
[2023-10-29 07:46] LABS: Calcium 8.3 mg/dl (8.6-10.3); Potassium 4.2 mmol/L (3.5-5.1)
[2023-10-29 07:52] LABS: BUN Creatinine Ratio 15.5 (10-20); Creatinine Clr Calc Pharmacy 92.3 ml/min; Est GFR (African American) 87.7 ml/min; Est GFR (Non-African American) 75.7 ml/min
[2023-10-29] MEDS: TAMSULOSIN HCL 0.4 MG CAP PO SCH (08:05)
--- NOTE | 2023-10-29 10:25 | Urology Progress Note ---
Date of Service October 29, 2023 Assessment & Plan (1) Calculus, ureteral: (2) Hydroureteronephrosis: Plan POD #1 s/p cystoscopy and left ureteral stent placement Feeling well, tolerating the stent with minimal bother Afebrile and hemodynamically stable. Labs reviewed -creatinine 1.10 Urinalysis without signs of infection. Okay to d/c from perspective when medically stable Recommend d/c with Tamsulosin, prn Pyridium and prn pain medication for stent management Will arrange outpatient follow-up with our service Expected clinical course reviewed, all questions answered Urology will sign off. Please call with any further questions or concerns. Admission and Anticipated Discharge Date Admission Date: October 27, 2023 Subjective Patient examined at bedside this a.m. Awake, sitting in bedside chair on arrival. No acute distress. Overall feeling much better. Tolerating the ureteral stent with minimal bother. Denies fever, chills, nausea, vomiting. Voiding without issue. Some mild hematuria, no dysuria. Review of Systems Constitutional: as per Subjective / HPI Gastrointestinal: as per Subjective / HPI Genitourinary: + as per Subjective / HPI Physical Exam Constitutional: well developed and well nourished; no acute distress Respiratory: no respiratory distress and no labored breathing Neurologic: moves all extremities and awake Psychiatric: A+Ox3, euthymic affect Results & Data Vital Signs (Past 12 Hours) Vital Signs Temp Pulse Resp BP Pulse Ox O2 Del Method 10/29/23 07:35 36.8 C 63 16 123/67 95 Room Air 10/29/23 02:40 36.7 C 70 16 110/55 L 95 Room Air 10/29/23 00:07 36.9 C 77 18 123/63 96 Room Air PG Care Time/CCT Total # of Minutes Spent Total Time Spent with Patient: Total time spent is greater than 50% in coordination of care (as documented) at patient's floor/unit and/or counseling patient: Coding Level of Care Code 53363 SUB INP/OBS CARE 2/35MIN Diagnoses Calculus, ureteral N20.1 Hydroureteronephrosis N13.30
--- NOTE | 2023-10-29 17:24 | Discharge Summary ---
Date of Service October 29, 2023 Admission HPI Per Admitting Provider Gorge is a 53 year old male with a PMH significant for prostate cancer (following with [facility] currently on surveillance) and BPH with urinary retention who presented to the [facility] ED on 10/27 with complaints of difficulty voiding. He remained stable in the ED. Labs were significant for a leukocytosis of 12, neutrophil predominance of 9, Cr of 1.3 (baseline is approximately 1.0), and UA without signs of infection. CT of the abd/pelvis wo IV con was read as "1 . There is a 5 mm obstructing calculus in the distal left ureter. This causes mild left hydroureteronephrosis. 2. There is an additional punctate nonobstructing calculus in the left lower pole. 3. The prostate gland is enlarged and heterogeneous. 4. Additional findings as above.". The patient had a wu catheter placed and was given 2 doses of 50 mcg IV fentanyl, one dose of 100 mcg IV fentanyl, 2 doses of 0.5 mg IV dilaudid, 2L NSS, and 2 doses of 4 mg IV zofran without relief of his symptoms. At the time of the exam the patient was sleeping in bed, he was stable on 2L NC which was placed after he became hypoxic after receiving IV Dilaudid per his nurse. He states that he started to notice decreased urine output yesterday. This am he started to develop acute onset of 10/10, sharp/stabbing back pain with radiation to the left flank/abdomen. He states that the pain comes in waves. He denies a previous history of kidney stones. He confirms his hx of prostate cancer and states that he is in surveillance and follows with [facility]. Denies fever, chills, chest pain, SOB, cough, abd pain, nausea, vomiting, diarrhea, dysuria, hematuria, melena, and recent trauma. His pain is currently under control after receiving IV dilaudid in the ED. Principal Diagnosis Nephrolithiasis - obstructing distal L ureteral stone, ANUP Discharge Exam PHYSICAL EXAMINATION Last 24h vital signs reviewed, see documentation in flowsheet General: comfortable appearing, no distress HEENT: Normocephalic, atraumatic, pupils round and equal, sclerae anicteric, no conjunctival injection, moist mucus membranes Lungs: Normal respiratory effort. Clear to auscultation bilaterally. No RRW Heart: Regular rate and rhythm, no murmurs. No JVD Abdomen: Soft, nontender, nondistended. Bowel sounds present. Extremities: Warm, dry, well-perfused. No extremity edema. Neuro: Alert and oriented x 4, face symmetric, moves 4 extremities well Psych: Normal affect and behavior Discharge Data Allergies Allergy/AdvReac Type Severity Reaction Status Date / Time No Known Allergies Allergy Verified 10/27/23 15:19 Consultations 10/27/23 16:45 ED Decision to Admit Stat 10/27/23 16:58 Consult Urology Routine Procedures Performed Operation Date: 10/28/23 10:40 Actual Procedures p Cystoscopy Left Retrograde Pyelogram with left Stent Placement(Left) - Aram Lewis MD Ordered Studies 10/27/23 11:05 CT abd pelvis wo con Stat 10/28/23 14:00 FL retrograde includes kub Routine Abdomen/Pelvis CT 10/27/23 11:05 CT SCAN OF THE ABDOMEN AND PELVIS WITHOUT IV CONTRAST CLINICAL HISTORY: Lower abdominal pain. Inability to void. COMPARISON STUDY: MRI of the prostate gland dated 02/22/2023. TECHNIQUE: CT scan of the abdomen and pelvis is performed from the lung bases to the proximal femora. Images are reviewed in the axial, sagittal, and coronal planes. IV contrast was not administered for this examination. A dose lowering technique was utilized adhering to the principles of ALARA. CT DOSE: 1448.11 mGy.cm FINDINGS: Lung bases: The heart is normal in size and without pericardial effusion. There is mild bibasilar atelectasis. The lung bases are otherwise clear. Liver: The unenhanced liver is normal in size, contour, and attenuation. There is no intrahepatic biliary ductal dilatation. Scattered subcentimeter hepatic hypodensities likely represent cysts but are too small for definitive characterization. Gallbladder: Unremarkable. Spleen: Normal in size and attenuation. Pancreas: Unremarkable. Adrenal glands: Unremarkable. Kidneys: The unenhanced kidneys are normal in size. There is a 5 mm obstructing calculus in the distal left ureter just above the vesicoureteral junction seen on image #323. This causes mild left hydroureteronephrosis. There is associated left-sided perinephric stranding and fluid. There is an additional punctate nonobstructing left renal calculus. No right renal calculi are identified and there is no right-sided hydronephrosis. There is no evidence of contour deforming renal mass lesion. Abdominal vasculature: The abdominal aorta is normal in course and caliber. Bowel: There is no bowel obstruction. The appendix is well-visualized and normal. Peritoneum: There is no intraperitoneal free air or abdominal ascites. There is a small fat-containing umbilical hernia. Lymphadenopathy: None. Pelvic viscera: The prostate gland is enlarged and heterogeneous. The bladder is decompressed and a Wu catheter and not well evaluated. There are bilateral fat-containing inguinal hernias, left larger than right. Skeletal structures: No lytic or blastic lesions are seen. Sclerotic change is noted in the pubic symphysis. 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 IMPRESSION: 1. There is a 5 mm obstructing calculus in the distal left ureter. This causes mild left hydroureteronephrosis. 2. There is an additional punctate nonobstructing calculus in the left lower pole. 3. The prostate gland is enlarged and heterogeneous. 4. Additional findings as above. ACT 112: Negative or not required by law. Electronically signed by: Mohit May M.D. 10/27/2023 12:23 PM Chest X-Ray 10/27/23 18:12 XR chest 1V portable HISTORY: hypoxia COMPARISON: None. FINDINGS: No pneumothorax. No pleural effusions. There are low lung volumes. A few bibasilar linear densities favor subsegmental atelectasis or scarring. Otherwise, lungs are clear. No evidence for pulmonary edema. The heart is mildly enlarged. This may be accentuated by the low lung volumes. No acute fractures identified. IMPRESSION: No acute process. ACT 112: Negative or not required by law. Electronically signed by: Tomas Faulkner M.D. 10/28/2023 6:42 AM Retrograde Pyelogram 10/28/23 14:00 INTRAOPERATIVE RADIOGRAPHS CLINICAL HISTORY: Left ureteral stent placement. Fluoro time: 9 seconds Ka,r: 2.69 mGy FINDINGS: 2 spot fluoroscopic views of the left abdomen are correlated with abdominal CT dated 10/27/2023. The initial image shows a wire projecting over the left renal pelvis. The second image shows the proximal end of a left ureteral stent in appropriate position. IMPRESSION: Intraoperative images from a left ureteral stent placement procedure as above. Electronically signed by: Mohit May M.D. 10/28/2023 3:48 PM 10/28/23 07:51 10/29/23 06:34 Hospital Course (1) Calculus, ureteral: -Noted to have a 5 mm left distal ureteral stone on CT of the abd/pelvis with mild left hydrounephrosis -continued flomax -IV fluids -Urology consulted - cystoscopy and L ureteral stent 10/28 -tolerated well only having some stent pain when initiating a void, otherwise no pain -will follow up with Dr. Tello - discussed with him - has appt 11/17 Ordered PSA requested in outpatient setting for follow up of prostate cancer, note may be transiently elevated due to cystoscopy and stenting procedure. PSA=7 (2) ANUP (acute kidney injury): Obstructive ANUP Cr baseline around 1 Increased to 1.8 -ureteral stent placed -IV fluids -resolved by discharge (3) Hypoxia: -Patient became mildly hypoxic after receiving multiple doses of IV dilaudid in ED and falling asleep per his nurse -reviewed CXR film and report - low lung volumes and atelectasis -Incentive spirometry, flutter therapy, prn O2. resolved (4) Hydroureteronephrosis: -See Ureteral calculus (5) Prostate cancer: -Follows with [facility] Dr. Tello -Currently on surveillance Plan Total Time Total Time Spent Total Time Spent (In Minutes): 25 minutes coordinating care for discharge Discharge Plan Discharge Items Patient Disposition: Home - Self-Care Reason For Visit: LEFT URETEAL STONE, UNCONTROLLED PAIN, DEHYDRATION Discharge Diagnosis: Left ureteral stone, acute kidney injury Activity: Resume your previous activity Activity Comment: no specific restrictions, see below Non-emergency contact: Primary Care Provider and Urologist Call non-emergency contact if: you have any medication questions, your symptoms worsen and you have a fever Follow-up/Referrals: Tramaine Tello MD [Physician] - 11/17/23 3:45 pm Aram Valenzuela DO [Primary Care Provider] - Diet: Regular Addtl Attending Provider Instructions: You were treated for kidney stone blocking your left ureter This caused mild kidney injury which resolved with stent placement Follow up with Dr. Tello for definitive stone treatment and stent removal There are several kinds of kidney stones, but most are calcium oxalate stones Drink plenty of fluids but you may want to change out the tea for something else - turns out tea has a lot of oxalate (I was not aware of this!) There are no specific activity restrictions for urinary stents, but you may want to take it easy with heavy lifting and twisting movements at work because it could cause pain from tugging on the stent. It was a pleasure taking care of you in the hospital, Abby Sawant MD Pending Studies at Discharge: No Stand-Alone Forms: My [facility], Smoking Cessation Medications and DC Order Prescriptions: Continued tamsulosin 0.4 mg capsule 0.4 mg PO DAILY Qty: 90 3RF inulin-sorbitol 2 gram Tablet,Chewable 2 tab PO DAILY krill oil [id number] mg Capsule 1 cap PO DAILY Discharge Orders: Discharge Order (Routine); Ordered 10/29/23 Ordered By: Abby Bennett/Other Patient Handouts: Having a Ureteral Stent, Preventing Kidney Stones Admission Data Admit Date/Time: 10/27/23 18:06 Attending Provider: Abby Sawant Admit Provider: Alexey Mariscal Primary Care Provider: Aram Valenzuela Other Providers: Juan Henriquez; Perez Burns Other Interventions: Discharge Summary Assessment (RN) Last Done: 10/29/23 10:23 Coding Level of Care Code 29494 IN/OBS DISCH 30 MIN/LESS Diagnoses Calculus, ureteral N20.1 ANUP (acute kidney injury) N17.9 Hypoxia R09.02 Hydroureteronephrosis N13.30 Prostate cancer C61
== END 2023-10-29 11:04 | disposition home or self-care (01) | DRG 661 ==
LOC: ED 10:03 → 3N 18:06 → SUATTDRO 18:06 → 3N 22:09